=== PATIENT | female | born 1985 ===

== ENCOUNTER → 2024-06-29 | Outpatient (CLI) | payer OTHER ==
[2024-06-29 20:32] LABS: Protein, Urine Quantitative 12.1 mg/dL (0.0-11.9)
== END ==
LOC: LAB SHORT 17:30 → LAB 17:30
PROVIDERS: Registered Nurse Community Health
DX: O09.522 Supervision of elderly multigravida, second trimester (principal); Z3A.00 Weeks of gestation of pregnancy not specified
CPT/HCPCS: 81050; 84156

== ENCOUNTER → 2024-09-06 | Outpatient (CLI) | payer OTHER ==
[2024-09-06 19:23] LABS: BASOPHILS ABSOLUTE AUTO 0.02 K/mm3 (0.00-0.23); BASOPHILS PERCENT AUTO 0 % (0-2); EOSINOPHILS ABSOLUTE AUTO 0.01 K/mm3 (0.00-0.68); EOSINOPHILS PERCENT AUTO 0 % (0-6); Hematocrit 37.3 % (33.0-51.0); Hemoglobin 12.9 g/dL (11.5-16.0); IMMATURE GRAN ABSOLUTE AUTO 0.02 K/mm3 (0.00-0.10); IMMATURE GRAN PERCENT AUTO 0 % (0-1); LYMPHOCYTES ABSOLUTE AUTO 1.72 K/mm3 (0.84-5.20); LYMPHOCYTES PERCENT AUTO 24 % (21-46); MONOCYTES ABSOLUTE AUTO 0.46 K/mm3 (0.16-1.47); MONOCYTES PERCENT AUTO 6 % (4-13); Mean Corpuscular HGB 31.4 pg (26.0-34.0); Mean Corpuscular HGB Conc 34.6 g/dL (31.5-36.5); Mean Corpuscular Volume 91 fL (80-100); Mean Platelet Volume 10.9 fL (9.1-12.4); NEUTROPHILS ABSOLUTE AUTO 5.08 K/mm3 (1.96-9.15); NEUTROPHILS PERCENT AUTO 70 % (41-73); Platelet Count 387 K/mm3 (150-400); RDW Standard Deviation 46.5 fL (35.1-46.3); Red Blood Cell Count 4.11 M/mm3 (3.80-5.20); White Blood Cell Count 7.31 K/mm3 (4.00-11.30)
[2024-09-06 20:56] LABS: Albumin, Blood 2.5 g/dL (3.4-5.0); Albumin/Globulin Ratio 0.5 (0.8-1.8); Bilirubin, Total 0.6 mg/dL (0.1-1.0); Bun/Creatinine Ratio 30.6 (12.0-20.0); Calcium, Blood 9.3 mg/dL (8.5-10.1); Creatinine, Blood 0.59 mg/dL (0.40-1.00); Globulin, Blood 4.9 g/dL (2.2-4.0); Potassium, Blood 4.4 mmol/L (3.5-5.5); Total Protein, Blood 7.4 g/dL (6.4-8.2)
[2024-09-09 14:31] LABS: BILE ACIDS, TOTAL 38 umol/L (0-10)
== END | disposition home or self-care (01) ==
LOC: LAB SHORT 18:35 → LAB 18:35
PROVIDERS: Registered Nurse Community Health
DX: O26.643 Intrahepatic cholestasis of pregnancy, third trimester (principal)
CPT/HCPCS: 80053; 82239; 85025

== ENCOUNTER → 2024-09-13 | Outpatient (CLI) | payer OTHER ==
[~2024-09-13] MED LIST: METF500C PO; PRENATAL TABLE1 EAC2 PO; URSO300 PO
[2024-09-13 17:33] LABS: Albumin, Blood 2.4 g/dL (3.4-5.0); Albumin/Globulin Ratio 0.5 (0.8-1.8); Bilirubin, Total 0.4 mg/dL (0.1-1.0); Bun/Creatinine Ratio 25.4 (12.0-20.0); Calcium, Blood 9.3 mg/dL (8.5-10.1); Creatinine, Blood 0.55 mg/dL (0.40-1.00); Globulin, Blood 4.8 g/dL (2.2-4.0); Total Protein, Blood 7.2 g/dL (6.4-8.2)
[2024-09-21 15:20] LABS: BILE ACID-URSODEOXYCHOLIC ACID 23.3 umol/L (0.0-1.0); BILE ACIDS - CHENODEOXYCHOLIC 17.6 umol/L (0.0-3.4); BILE ACIDS - CHOLIC ACID 48.7 umol/L (0.0-1.9); BILE ACIDS - DEOXYCHOLIC ACID 7.7 umol/L (0.0-2.5); TOTAL BILE ACIDS 97.3 umol/L (0.0-7.0)
== END ==
LOC: LAB SHORT 16:25 → LAB 16:25
PROVIDERS: Registered Nurse Community Health
DX: O26.643 Intrahepatic cholestasis of pregnancy, third trimester (principal)
CPT/HCPCS: 80053; 83789

== ENCOUNTER → 2024-09-17 | Outpatient (CLI) | payer OTHER | END | disposition home or self-care (01) | LOC: LAB SHORT 18:43 → LAB 18:43 | DX: Z34.93 Encounter for supervision of normal pregnancy, unspecified, third trimester (principal) | CPT/HCPCS: 87081; 87150 ==

== ENCOUNTER → 2024-09-20 | Outpatient (CLI) | payer OTHER ==
[2024-09-20 15:53] LABS: Albumin, Blood 2.4 g/dL (3.4-5.0); Albumin/Globulin Ratio 0.5 (0.8-1.8); Bilirubin, Total 0.6 mg/dL (0.1-1.0); Bun/Creatinine Ratio 26.6 (12.0-20.0); Calcium, Blood 9.1 mg/dL (8.5-10.1); Creatinine, Blood 0.49 mg/dL (0.40-1.00); Globulin, Blood 4.5 g/dL (2.2-4.0); Potassium, Blood 4.2 mmol/L (3.5-5.5); Total Protein, Blood 6.9 g/dL (6.4-8.2)
[2024-09-22 04:10] LABS: BILE ACIDS, TOTAL 199 umol/L (0-10)
== END ==
LOC: LAB SHORT 15:24 → LAB 15:24
PROVIDERS: Registered Nurse Community Health
DX: O26.643 Intrahepatic cholestasis of pregnancy, third trimester (principal)
CPT/HCPCS: 80053; 82239

== ENCOUNTER 2024-09-23 21:27 | Inpatient (IN) | payer OTHER ==
[~2024-09-23] VITALS: Ht 160 cm; Wt 71.4 kg
[2024-09-23 21:47] VITALS: BP 119/66
[2024-09-23] MEDS ORDERED: FentaNYL Citrate 50 MCG/ML 2 ML Injection IV PRN (22:35)
[2024-09-23] MEDS ORDERED: Ondansetron HCl 2 MG / ML 2ML Vial IV PRN (22:35)
[2024-09-23] MEDS ORDERED: Misoprostol 200 MCG Tab PR PRN (22:35)
[2024-09-23] MEDS ORDERED: Lactated Ringer's 1,000 ML IV PRN (22:35)
[2024-09-23] MEDS ORDERED: Misoprostol 200 MCG Tab BC PRN (22:35)
[2024-09-23] MEDS ORDERED: Acetaminophen 500 MG Tab PO PRN (22:35)
[2024-09-23] MEDS ORDERED: Methylergonovine Maleate 0.2MG / ML 1ML Amp IM PRN (22:35)
[2024-09-23] MEDS ORDERED: Carboprost Tromethamine 250 MCG/ML 1ML Amp IM PRN (22:35)
[2024-09-23] MEDS ORDERED: OXYTOCIN/RINGER'S LACTATE 500 ML IV PRN (22:35)
[2024-09-23] MEDS ORDERED: Oxytocin 10 Unit / ML Vial IM PRN (22:35)
[2024-09-23] MEDS ORDERED: Tranexamic Acid 100 ML IV SCH (22:35)
[2024-09-23] MEDS ORDERED: Calcium Carbonate 500 MG Tab Chew PO PRN (22:40)
[2024-09-23 23:41] LABS: Hematocrit 37.2 % (33.0-51.0); Hemoglobin 12.8 g/dL (11.5-16.0); Mean Corpuscular HGB 31.4 pg (26.0-34.0); Mean Corpuscular HGB Conc 34.4 g/dL (31.5-36.5); Mean Corpuscular Volume 91 fL (80-100); Mean Platelet Volume 11.6 fL (9.1-12.4); Platelet Count 305 K/mm3 (150-400); RDW Coefficient Variation 13.9 % (11.7-14.2); RDW Standard Deviation 46.1 fL (35.1-46.3); Red Blood Cell Count 4.08 M/mm3 (3.80-5.20)
[2024-09-23 23:46] LABS: White Blood Cell Count 8.67 K/mm3 (4.00-11.30)
[2024-09-23 23:58] LABS: Albumin, Blood 2.4 g/dL (3.4-5.0); Albumin/Globulin Ratio 0.5 (0.8-1.8); Bilirubin, Total 0.5 mg/dL (0.1-1.0); Bun/Creatinine Ratio 35.2 (12.0-20.0); Calcium, Blood 9.1 mg/dL (8.5-10.1); Creatinine, Blood 0.4 mg/dL (0.40-1.00); Globulin, Blood 4.8 g/dL (2.2-4.0); Potassium, Blood 4.2 mmol/L (3.5-5.5); Total Protein, Blood 7.2 g/dL (6.4-8.2)
[2024-09-24] VITALS (19 sets, daily range): BP systolic 110–163; BP diastolic 57–78
[2024-09-24 00:09] LABS: BASOPHILS PERCENT MAN 0 % (0-2); EOSINOPHILS PERCENT MAN 0 % (0-6); LYMPHOCYTES ABSOLUTE MAN 2.51 K/mm3 (0.84-5.20); LYMPHOCYTES PERCENT MAN 29 % (21-46); MONOCYTES PERCENT MAN 7 % (4-13); NEUTROPHILS ABSOLUTE MAN 5.54 K/mm3 (1.96-9.15); SEG NEUTROPHILS PERCENT MAN 64 % (41-73); TOTAL CELLS COUNTED 100
[2024-09-24] MEDS ORDERED: PRENATAL TABLE1 EAC2 PO (00:15)
[2024-09-24] MEDS ORDERED: URSO300 PO (00:15)
[2024-09-24] MEDS ORDERED: METF500C PO (00:16)
[2024-09-24] MEDS ORDERED: Measles/Mumps/Rubella Vaccine 0.5 ML Vial SC ONE (02:30)
[2024-09-24] MEDS ORDERED: Ibuprofen 400 MG Tab PO PRN (02:30)
[2024-09-24] MEDS ORDERED: Ketorolac Tromethamine 30mg Vial IV PRN (02:30)
[2024-09-24] MEDS ORDERED: Lactated Ringer's 1,000 ML IV SCH (02:30)
[2024-09-24] MEDS ORDERED: Acetaminophen/Codeine 300-30 mg PO PRN (02:35)
[2024-09-24] MEDS ORDERED: Diphth,Pertuss(Acell),Tet Vac 0.5 ML VIAL IM ONE (02:35)
[2024-09-24] MEDS ORDERED: Docusate Sodium 100 MG Cap PO PRN (02:35)
[2024-09-24] MEDS ORDERED: Benzocaine Topical Anesthetic Spray 60GM TOP PRN (02:35)
[2024-09-24] MEDS ORDERED: Misoprostol 200 MCG Tab PR PRN (02:35)
[2024-09-24] MEDS ORDERED: Methylergonovine Maleate 0.2MG / ML 1ML Amp IM PRN (02:35)
[2024-09-24] MEDS ORDERED: Lanolin Cream TOP PRN (02:40)
[2024-09-24] MEDS ORDERED: OXYTOCIN/RINGER'S LACTATE 500 ML IV SCH (02:40)
[2024-09-24] MEDS ORDERED: Witch Hazel/Glycerin PADS TOP PRN (02:40)
[2024-09-24] MEDS ORDERED: Oxytocin 10 Unit / ML Vial IM ONE (02:40)
[2024-09-24] MEDS ORDERED: FLU VACC TS2024-25(6MOS UP)/PF 45 MCG/0.5 ML SYRINGE IM ONE (02:40)
[2024-09-24] MEDS ORDERED: Acetaminophen 325 MG TABLET PO PRN (02:40)
[2024-09-24 06:10] LABS: BASOPHILS ABSOLUTE AUTO 0.02 K/mm3 (0.00-0.23); BASOPHILS PERCENT AUTO 0 % (0-2); EOSINOPHILS ABSOLUTE AUTO 0.01 K/mm3 (0.00-0.68); EOSINOPHILS PERCENT AUTO 0 % (0-6); Hematocrit 36.6 % (33.0-51.0); Hemoglobin 12.6 g/dL (11.5-16.0); IMMATURE GRAN ABSOLUTE AUTO 0.06 K/mm3 (0.00-0.10); IMMATURE GRAN PERCENT AUTO 0 % (0-1); LYMPHOCYTES ABSOLUTE AUTO 1.13 K/mm3 (0.84-5.20); LYMPHOCYTES PERCENT AUTO 8 % (21-46); MONOCYTES PERCENT AUTO 5 % (4-13); Mean Corpuscular HGB 31.6 pg (26.0-34.0); Mean Corpuscular HGB Conc 34.4 g/dL (31.5-36.5); Mean Corpuscular Volume 92 fL (80-100); Mean Platelet Volume 11.6 fL (9.1-12.4); NEUTROPHILS ABSOLUTE AUTO 11.82 K/mm3 (1.96-9.15); NEUTROPHILS PERCENT AUTO 86 % (41-73); Platelet Count 282 K/mm3 (150-400); RDW Coefficient Variation 13.8 % (11.7-14.2); RDW Standard Deviation 46.5 fL (35.1-46.3); Red Blood Cell Count 3.99 M/mm3 (3.80-5.20); White Blood Cell Count 13.74 K/mm3 (4.00-11.30)
[2024-09-24] MEDS ORDERED: Prenatal Vit/FE Fumarate/FA 1 Tab PO SCH (09:00)
--- NOTE | 2024-09-24 18:50 | NUR ---
STABLE PATIENT THIS SHIFT REPORT TO NOCS
[2024-09-25] VITALS (7 sets, daily range): BP systolic 101–123; BP diastolic 53–71
[2024-09-26 04:17] VITALS: BP 122/59
[2024-09-26 07:54] VITALS: BP 119/66
[2024-09-26 12:23] VITALS: BP 108/60
--- NOTE | 2024-09-26 13:11 | NUR ---
[employer] USED INTERPRETOR PHONE FOR TRANSLATION TO COMPLETE EDUCATION REGARDING BREAST FEEDING AND TO COMPLETE EXAM. INTERPRETOR ID # [id number]
--- NOTE | 2024-09-26 13:41 | NUR ---
DIGITAL PRODUCT MANAGER PHONE USED #[phone], MARY DISUSSED PATERNITY PAPERWORK - PT HAS NO QUESTIONS AND VERBALIZES UNDERSTANDING DISCUSSED BOARDER STATUS, PT STATES THAT SHE HAS NO CONCERNS ABOUT GETTING FOOD ON BOARDER STATUS, OFFERED SUPPORT IF NEEDED. PT HAS NO QUESTIONS AT THIS TIME
[2024-09-26 19:51] VITALS: BP 118/60
--- NOTE | 2024-09-26 20:26 | NUR ---
Classroom Technology Technician phone used. [facility] number [phone] utilized. Discharge instructions reviewed and questions answered. POC regarding care, feeding plan, etc also discussed.
== END 2024-09-26 21:50 | disposition home or self-care (01) | DRG 806 ==
LOC: OBS 21:27 → BC 21:37 → OBS 22:51 → BC 22:52
PROVIDERS: Nurse Practitioner Obstetrics & Gynecology; ADMIT Registered Nurse Community Health
PROC: 10E0XZZ Delivery of Products of Conception, External Approach (ICD-10-PCS; principal; 2024-09-24)
PROC: 10907ZC Drainage of Amniotic Fluid, Therapeutic from Products of Conception, Via Natural or Artificial Opening (ICD-10-PCS; 2024-09-24)
PROC: 4A0HXCZ Measurement of Products of Conception, Cardiac Rate, External Approach (ICD-10-PCS; 2024-09-24)
DX: O24.92 Unspecified diabetes mellitus in childbirth (principal); O26.643 Intrahepatic cholestasis of pregnancy, third trimester; Z37.0 Single live birth; O60.10X0 Preterm labor with preterm delivery, unspecified trimester, not applicable or unspecified; Z3A.36 36 weeks gestation of pregnancy; O77.0 Labor and delivery complicated by meconium in amniotic fluid; Z98.890 Other specified postprocedural states; Z79.84 Long term (current) use of oral hypoglycemic drugs; Z79.899 Other long term (current) drug therapy
CPT/HCPCS: 36415; 59025; 80053; 81003; 82239; 82947; 85025; 86850; 86900; 86901; 90471; 90715; 99214; A9270; J1885; J2405